=== PATIENT | female | born 1955 | race Asian ===

== ENCOUNTER 2025-05-24 06:52 | Emergency (ER) | payer MEDICARE, OTHER ==
[~2025-05-24] VITALS: Ht 160 cm; Wt 54.5 kg
[~2025-05-24 06:52] MED LIST: ATOR20TA PO; CLOP75TA83 PO
[2025-05-24 07:35] VITALS: TEMP 98
[2025-05-24 08:04] LABS: WHITE BLOOD COUNT (AUTO) 11.6 K/uL (4.5-11.0)
[2025-05-24 08:12] LABS: PLATELET COUNT (AUTO) 274 K/uL (150-450); RED BLOOD CELL COUNT(AUTO) 4.82 MIL/uL (4.00-5.20); RED CELL DISTRIBUTION WIDTH 13.8 % (11.5-14.5)
[2025-05-24 08:13] LABS: CALCIUM, TOTAL 9.8 mg/dL (8.8-10.5); CREATININE 1.14 mg/dL (0.60-1.30); GLOMERULAR FILTR. RATE CALC 47.0 mL/min (>60); GLUCOSE,RANDOM 211.0 mg/dL (70-110); SODIUM SERUM 135.0 mmol/L (136-145); UREA NITROGEN, BLOOD 18.0 mg/dL (7-18)
[2025-05-24 08:26] LABS: APPEARANCE,URINE TURBID (CLEAR); GLUCOSE, URINE (UA) >=1000 mg/dL (NEGATIVE); LEUKOCYTE ESTERASE ,URINE LARGE (NEGATIVE); NITRATE,URINE NEGATIVE (NEGATIVE); OCCULT BLOOD,URINE MODERATE (NEGATIVE); SPECIFIC GRAVITIY, URINE 1.019 (1.003-1.030)
[2025-05-24 08:47] LABS: SULFOSALICYLIC ACID,URINE 2+ (Negative)
[2025-05-24 08:52] LABS: YEAST,URINE Many /HPF (None Seen)
[2025-05-24] MEDS ORDERED: CEPH-558 PO (09:36)
[2025-05-24 09:40] VITALS: BP 118/67; PULSE 60; RESP 18; O2SAT 99
[2025-05-24] MEDS: CefTRIAXone 1 GM/DEXTROSE 50 ML IV ONE (09:40)
== END 2025-05-24 10:09 | disposition home or self-care (01) ==
LOC: EMS 06:52
DX: N39.0 Urinary tract infection, site not specified (principal); R31.9 Hematuria, unspecified; R10.8A3 Suprapubic tenderness; E11.9 Type 2 diabetes mellitus without complications; F17.210 Nicotine dependence, cigarettes, uncomplicated; I10 Essential (primary) hypertension; Z79.02 Long term (current) use of antithrombotics/antiplatelets; Z86.73 Personal history of transient ischemic attack (TIA), and cerebral infarction without residual deficits; Z88.6 Allergy status to analgesic agent; Z79.899 Other long term (current) drug therapy
CPT/HCPCS: 99284; 96365; 80048; 81001; 83690; 85025; 87077; 87086; 87186; 36415; J0696; 81002